=== PATIENT | male | born 1955 | race Caucasian/White ===

== ENCOUNTER 2024-03-31 07:46 | Day surgery (SDC) | payer MEDICARE ==
[~2024-03-31] VITALS: Ht 195.6 cm; Wt 105.7 kg
[~2024-03-31 07:46] MED LIST: METFORMIN HCL500 M1 PO
[2024-03-31] MEDS ORDERED: FAMOTIDINE 10MG/ML 2ML SDV IV ONE (07:57)
[2024-03-31] MEDS ORDERED: SODIUM CHLORIDE 0.9% 1,000 ML IV ONE (07:57)
[2024-03-31 10:13] VITALS: BP 168/97
[2024-03-31] MEDS ORDERED: LIDOCAINE HCL 2% 2ML SDV IV ONE (10:56)
[2024-03-31] MEDS ORDERED: GLYCOPYRROLATE 0.2 MG/ML IV ONE (10:56)
[2024-03-31] MEDS ORDERED: PROPOFOL 200 MG/20 ML VIAL IV ONE (10:56)
== END 2024-03-31 10:27 | disposition home or self-care (01) ==
LOC: ENDO 07:46 → ORM 08:50 → ENDO 08:50 → ORM 11:30
PROVIDERS: ATTEND Surgery
PROC: 0DBH8ZX Excision of Cecum, Via Natural or Artificial Opening Endoscopic, Diagnostic (ICD-10-PCS; principal; 2024-03-31)
PROC: 0DBM8ZX Excision of Descending Colon, Via Natural or Artificial Opening Endoscopic, Diagnostic (ICD-10-PCS; 2024-03-31)
DX: K57.31 Diverticulosis of large intestine without perforation or abscess with bleeding (principal); K51.40 Inflammatory polyps of colon without complications; D12.4 Benign neoplasm of descending colon; K64.8 Other hemorrhoids; E11.9 Type 2 diabetes mellitus without complications; Z79.84 Long term (current) use of oral hypoglycemic drugs
CPT/HCPCS: J1596